=== PATIENT | female | born 1990 ===

== ENCOUNTER 2017-01-15 20:38 | Emergency (ER) | payer MEDICAID ==
[2017-01-15 21:08] VITALS: BP 123/79; PULSE 110; RESP 18; O2SAT 100
[2017-01-15] MEDS ORDERED: Sodium Chloride 0.9% 1,000 ML IV STA (22:01)
[2017-01-15 22:57] LABS: BASO % 0.1 % (0.0-2.0); EOS # 0.1 K/uL (0.0-0.7); EOS % 0.5 % (0.0-4.0); HEMATOCRIT 37.2 % (34.0-47.0); LYMPH # 2.2 K/uL (1.0-4.3); LYMPH % 17.4 % (20.0-40.0); MEAN CELL VOLUME 86.9 fl (81.0-99.0); MEAN CORPUSCULAR HEMOGLOBIN 28.8 pg (27.0-31.0); MEAN CORPUSCULAR HGB CONC 33.1 g/dL (33.0-37.0); MEAN PLATELET VOLUME 8.6 fl (7.2-11.7); MONO # 0.7 K/uL (0.0-0.8); MONO % 5.2 % (0.0-10.0); NEUT # 9.6 K/uL (1.8-7.0); NEUT % 76.8 % (50.0-75.0); RED CELL DISTRIBUTION WIDTH 13.3 % (11.5-14.5); WHITE BLOOD COUNT 12.5 K/uL (4.8-10.8)
[2017-01-15 22:58] LABS: URINE APPEARANCE CLOUDY (CLEAR); URINE BILIRUBIN NEGATIVE (NEGATIVE); URINE BLOOD LARGE (NEGATIVE); URINE COLOR YELLOW (YELLOW); URINE GLUCOSE (UA) NEG (Normal); URINE KETONE NEGATIVE (NEGATIVE); URINE LEUKOCYTE ESTERASE MOD Leu/uL (Negative); URINE PROTEIN NEGATIVE (NEGATIVE); URINE UROBILINOGEN 0.2-1.0 mg/dL (0.2-1.0)
[2017-01-15 23:00] LABS: ALB/GLOB RATIO 1.1 (1.0-2.1); ALKALINE PHOSPHATASE 112 U/L (38-126); ALT/SGPT 41 U/L (9-52); AST/SGOT 39 U/L (14-36); BILIRUBIN,TOTAL 0.7 mg/dl (0.2-1.3); BLOOD UREA NITROGEN 16 mg/dl (7-17); CALCIUM 9.2 mg/dL (8.4-10.2); CARBON DIOXIDE 28 mmol/L (22-30); CHLORIDE 103 mmol/L (98-107); GFR AFRICAN-AMERICAN > 60; GLUCOSE,RANDOM 107 mg/dL (65-105); SODIUM 144 mmol/l (132-148); TOTAL PROTEIN 7.7 G/DL (6.3-8.2)
--- NOTE | 2017-01-15 23:09 | US ---
EXAM: US Pelvis, Transvaginal CLINICAL HISTORY: 26 years old, female; Pain; Pelvic pain; Additional info: Fever pelvic pain discharge iud R/O pid or abscess TECHNIQUE: Real-time transvaginal pelvic ultrasound (complete) with image documentation. Transvaginal imaging was used for better evaluation of the endometrium and adnexa. COMPARISON: No relevant prior studies available. FINDINGS: Uterus/cervix: Retroverted uterus. Uterus measures 6.0 x 2.9 x 5.1 cm in size. No myometrial mass. Endometrium: 0.5 cm in thickness. IUD in place. Right ovary: 3.7 x 1.9 x 3.1 cm in size. No mass. Small follicles. Normal flow. Left ovary: 1.9 x 1.9 x 3.0 cm in size. No mass. Small follicles. Normal flow. Free fluid: No significant free fluid. Bladder: Empty bladder which cannot be evaluated with this probe. IMPRESSION: 1.No acute findings. 2.Non-acute findings are described above.
--- NOTE | 2017-01-15 23:32 | ED PDOC ---
HPI: Female Pain Time Seen by Provider: 01/15/17 21:14 Chief Complaint (Nursing): Abdominal Pain Chief Complaint (Provider): Pelvic Pain History Per: Patient History/Exam Limitations: no limitations Onset/Duration Of Symptoms: Days (x4) Current Symptoms Are (Timing): Still Present Severity: Moderate Quality Of Discomfort: Cramping (similar to menstrual cramping) Associated Symptoms: Other (vaginal spotting (brown), not similar to usual menstrual flow) Additional Complaint(s): Temi Reeves is a 26 year old female, with no pertinent past medical history, who presents to the ED on 01/15/17 for the evaluation of a moderate amount of pelvic pain that she has experienced over the past 4 days. Pain, further described as similar to menstrual cramping, has been accompanied by some associated brown vaginal spotting that is unlike what she usually experiences during her regular periods; using 1 pad/day. She also reports secondary complaints of subjective fever and throat pain that she has experienced over the past 2 days. Pain, worse with swallowing, is felt bilaterally though notably worse on the right side and reportedly also radiates into her bilateral ears. No analgesics/antipyretics taken prior to arrival. Of note, patient is also complaining of some epigastric abdominal pain that she has experienced intermittently over the past 4 months since having undergone a cholecystectomy. Pain is typically felt after the ingestion of food, though not always, and is accompanied by some abdominal swelling. Symptoms usually resolve spontaneously. She also reports experiencing some vomiting (4x/day, non-bilious/ non-bloody), though she denies any diarrhea, dysuria or urinary frequency. PMD: Tawana Past Medical History Reviewed: Historical Data, Nursing Documentation, Vital Signs Vital Signs: Last Vital Signs Temp 101.1 F H 01/15/17 22:01 Pulse 110 H 01/15/17 21:04 Resp 18 01/15/17 21:04 BP 123/79 01/15/17 21:04 Pulse Ox 100 01/15/17 21:04 - Medical History PMH: Gall Bladder Disease - Surgical History Surgical History: Cholecystectomy - Family History Family History: States: Diabetes - Social History Current smoker - smoking cessation education provided: No Alcohol: None Drugs: Denies - Immunization History Hx Tetanus Toxoid Vaccination: No Hx Influenza Vaccination: No Hx Pneumococcal Vaccination: No - Home Medications Home Medications: Ambulatory Orders Medication Instructions Recorded Ciprofloxacin HCl [Cipro] 500 mg PO BID #14 tab 08/17/14 Ondansetron ODT [Zofran ODT] 1 odt PO BID PRN #6 odt 08/17/14 Potassium Chloride [K-Dur 10] 1 tab PO BID #30 tab 08/17/14 Clindamycin [Cleocin] 600 mg PO TID 14 Days 01/16/17 Doxycycline Monohydrate 100 mg PO BID 14 Days 01/16/17 Ibuprofen [Motrin Tab] 600 mg PO Q8 PRN #60 tab 01/16/17 metroNIDAZOLE [Flagyl] 500 mg PO BID 14 Days 01/16/17 - Allergies Allergies/Adverse Reactions: Allergies Allergy/AdvReac Type Severity Reaction Status Date / Time morphine Allergy RASH Verified 01/15/17 21:03 Penicillins Allergy RASH Verified 01/15/17 21:03 Review of Systems ROS Statement: Except As Marked, All Systems Reviewed And Found Negative Constitutional: Positive for: Fever ENT: Positive for: Throat Pain Gastrointestinal: Positive for: Vomiting, Abdominal Pain (epigastric, intermittent). Negative for: Diarrhea Genitourinary Female: Positive for: Vaginal Bleeding (spotting, brown), Pelvic Pain. Negative for: Dysuria, Frequency Physical Exam - Reviewed Nursing Documentation Reviewed: Yes Vital Signs Reviewed: Yes - Physical Exam Appears: Positive for: Non-toxic, In Acute Distress (moderate painful distress) Head Exam: Positive for: ATRAUMATIC, NORMOCEPHALIC Skin: Positive for: Normal Color, Warm (febrile in ED), Dry Eye Exam: Positive for: Normal appearance, PERRL ENT: Positive for: Tonsillar Swelling (b/l peritonsilar enlargement/erythema), Other (moist mucous membranes). Negative for: Tonsillar Exudate Neck: Positive for: Normal, Painless ROM, Supple Cardiovascular/Chest: Positive for: Regular Rate, Rhythm. Negative for: Murmur Respiratory: Positive for: Normal Breath Sounds. Negative for: Respiratory Distress Gastrointestinal/Abdominal: Positive for: Soft, Tenderness (mild, epigastric/ suprapubic). 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) Back: Positive for: Normal Inspection Extremity: Positive for: Normal ROM (moving all extremities well) Neurologic/Psych: Positive for: Alert, Oriented - Laboratory Results Result Diagrams: 01/15/17 22:52 01/15/17 22:34 - ECG O2 Sat by Pulse Oximetry: 100 (RA) Pulse Ox Interpretation: Normal Medical Decision Making Medical Decision Makin:14 Initial Impression: abdominal pain, fever Differential diagnoses include but are not limited to PID, TOA, pharyngitis, viral syndrome, sepsis, dehydration, UTI Initial Plan: * Transvaginal US * Labs * Lactic Acid, Plasma * Udip * Upreg * Urinalysis * Influenza A B * Mononucleosis * Rapid Strep * Chlamydia/GC RNA * Genital Culture * Throat Culture * Urine Culture * IV NS 1000ml at 1000mls/hr * Toradol 30mg IV * Tylenol 975mg PO * Reevaluation Mildly elevated WBC Leuks in UA EXAM: US Pelvis, Transvaginal CLINICAL HISTORY: 26 years old, female; Pain; Pelvic pain; Additional info: Fever pelvic pain discharge iud R/O pid or abscess TECHNIQUE: Real-time transvaginal pelvic ultrasound (complete) with image documentation. Transvaginal imaging was used for better evaluation of the endometrium and adnexa. COMPARISON: No relevant prior studies available. FINDINGS: Uterus/cervix: Retroverted uterus. Uterus measures 6.0 x 2.9 x 5.1 cm in size. No myometrial mass. Endometrium: 0.5 cm in thickness. IUD in place. Right ovary: 3.7 x 1.9 x 3.1 cm in size. No mass. Small follicles. Normal flow. Left ovary: 1.9 x 1.9 x 3.0 cm in size. No mass. Small follicles. Normal flow. Free fluid: No significant free fluid. Bladder: Empty bladder which cannot be evaluated with this probe. IMPRESSION: 1. No acute findings. 2. Non-acute findings are described above. Thank you for allowing us to participate in the care of your patient. 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 Reviewed clinical picture, labs and US. Advised pt be started on PID antibiotics and f/u Head Operator for IUD removal in 1-2 weeks. DW pt findings and plan of care. Pt has anaphylactic allergic reaction to pcn. Clindamycin, flagyl, and doxycycline rx'd for PID. Scribe Attestation: Documented by Marlene Bustamante, acting as a scribe for Dunia Hair MD. Provider Scribe Attestation: All medical record entries made by the Scribe were at my direction and personally dictated by me. I have reviewed the chart and agree that the record accurately reflects my personal performance of the history, physical exam, medical decision making, and the department course for this patient. I have also personally directed, reviewed, and agree with the discharge instructions and disposition. Disposition - Clinical Impression Clinical Impression: Pelvic inflammatory disease (PID) Counseled Patient/Family Regarding: Studies Performed, Diagnosis, Need For Followup, Rx Given - Disposition [facility] - 01/21/17 ([facility]) Disposition: Routine/Home Disposition Time: 23:30 Condition: IMPROVED Prescriptions: Clindamycin [Cleocin] 600 mg PO TID 14 Days Doxycycline Monohydrate 100 mg PO BID 14 Days Ibuprofen [Motrin Tab] 600 mg PO Q8 PRN #60 tab PRN Reason: Pain, Moderate (4-7) metroNIDAZOLE [Flagyl] 500 mg PO BID 14 Days Instructions: Pelvic Inflammatory Disease (ED) Print Language: [place]
[2017-01-15 23:56] VITALS: TEMP 98.9
== END 2017-01-16 01:30 | disposition home or self-care (01) ==
LOC: H.ER 20:38
DX: R10.2 Pelvic and perineal pain (principal); N73.9 Female pelvic inflammatory disease, unspecified